=== PATIENT | female | born 1945 | race Hispanic/Latino ===

== ENCOUNTER 2020-04-07 09:44 | Emergency (ER) | payer MEDICARE, MEDICAID ==
[2020-04-07] MEDS ORDERED: DEXAMETHASONE INJ 10 MG/ML VIAL IV ONE (09:56)
[2020-04-07] MEDS ORDERED: REMDESIVIR 200 MG in SODIUM CHLORIDE 0.9% 250ML 250 ML IVPB ONE (09:57)
[2020-04-07 10:03] VITALS: BP 136/87; TEMP 96.2; O2SAT 99
[2020-04-07] MEDS ORDERED: MIDAZOLAM INJ 5 MG/5 ML VIAL ONE (10:33)
[2020-04-07] MEDS ORDERED: MORPHINE SULFATE INJ 10 MG/ML VIAL ONE (10:43)
--- NOTE | 2020-04-07 10:50 | RAD ---
EXAM DESCRIPTION: Chest,1 View CLINICAL HISTORY: 74 years Female, COVID, POST INTUBATION COMPARISON: None. Findings: One view(s)/radiograph(s) Overlying artifact limits evaluation. Right-sided PICC tip overlying the SVC. Cardiac silhouette and pulmonary vasculature are obscured. No pneumothorax. No pleural effusion. Diffuse bilateral airspace disease. Endotracheal tube tip at the dennys. IMPRESSION: Endotracheal tube tip at the dennys. Recommend 3 cm retraction. Diffuse bilateral airspace disease. Electronically signed by: Abbe Kate MD 04/07/2020 10:48 AM [facility]
--- NOTE | 2020-04-07 10:54 | RAD ---
EXAM DESCRIPTION: Chest,1 View CLINICAL HISTORY: covid, sob Findings: Portable supine view of the thorax was acquired April 07, 2020 at 1033 hours. The patient is intubated with endotracheal tube tip position in the left mainstem bronchus. Repositioning is recommended by withdrawal approximately 4 cm. Bilateral groundglass airspace opacities are present consistent with reported history of COVID. A right subclavian central venous catheter is seen. No pneumothorax is demonstrated. The heart size is within normal limits. No acute bony pathology. IMPRESSION: Endotracheal tube tip positioned in the left mainstem bronchus. This study was submitted at the same time 1033 hours a second image was submitted showing the endotracheal tube and improved position. Clinical correlation needed. Electronically signed by: Lior Rivera MD 04/07/2020 10:52 AM [facility]
--- NOTE | 2020-04-07 11:38 | ED.PDOC ---
History of Present Illness - General Chief Complaint: Respiratory Problem Stated Complaint: low sats at [facility] unit Time Seen by Provider: 04/07/20 09:45 Source: patient Exam Limitations: no limitations - History of Present Illness Initial Comments: The patient is a 74-year-old female sent from the [place] [facility] secondary to low oxygen saturations. The patient does appear pale and diaphoretic. Blood pressures are adequate though it is difficult to obtain accurate pulse oximetry readings on the patient. This is not a new problem however. The patient was placed on higher flow oxygen here and within about 30 minutes of arrival the patient coded. Chest compressions were started and the patient was bagged. Multiple rounds of epi and sodium bicarbonate were given. Glucose was greater than 300 but no other labs were back during the code. EKG had not yet been done by the time the patient had coded. On at least 2 occasions we did get a pulse back however it would quickly go away. It was at this point that we talked with her family, her sister who reported that she would not want to be on a ventilator and would not want to have CPR done. At that point we switched to comfort care. The patient did have a very faint pulse but was unresponsive and pulse ceased within a few minutes of chest compressions being stopped. This was in spite of epinephrine being on board. Lung watkins showed rales and wheezes throughout on initial exam and infiltrates were seen on chest x-ray for ET tube placement. The patient did initially have a PICC line in the right upper extremity which was used during the code. She had been receiving IV antibiotics for a sacral decubitus ulcer. We were actually in the middle of getting an ABG when the patient coded. See nursing notes for details of the code. The patient was known coronavirus positive prior to arrival. Upon arrival patient was initially conversive but a little bit delirious. She was cooperative. Timing/Duration: 4-6 hours Severity: severe Improving Factors: nothing Worsening Factors: movement Associated Symptoms: cough, malaise, shortness of breath, weakness Allergies/Adverse Reactions: Allergies NO KNOWN ALLERGY Allergy (Verified 04/07/20 09:58) Review of Systems - Review of Systems Constitutional: States: diaphoresis, malaise, weakness EENTM: States: nose congestion Respiratory: States: cough, short of breath, wheezing Cardiology: States: no symptoms reported Gastrointestinal/Abdominal: States: no symptoms reported Genitourinary: States: no symptoms reported Musculoskeletal: States: see HPI Skin: States: see HPI Neurological: States: see HPI Endocrine: States: no symptoms reported All other Systems: No Change from Baseline Past Medical History (General) - Patient Medical History Hx Stroke: No Hx Dementia: No Hx Asthma: No Hx of COPD: No Hx Cardiac Disorders: Yes Hx Congestive Heart Failure: No Hx Diabetes: Yes Hx Gastroesophageal Reflux: No Hx Renal Disease: No Hx Cancer: No Hx Hepatitis C: No MRSA Source:: Wound - Vaccination History Hx Tetanus, Diphtheria Vaccination: No Hx Influenza Vaccination: No Hx Pneumococcal Vaccination: No Immunizations Up to Date: No - Social History Hx Tobacco Use: No Hx Chewing Tobacco Use: No Hx Alcohol Use: No Hx Substance Use: No Hx Substance Use Treatment: No Hx Depression: No Feels Threatened In Home Enviroment: No Feels Threatened In a Relationship: No Hx Physical Abuse: No Hx Emotional Abuse: No Hx Suspected Abuse: No - Activities of Daily Living Halfway/Assisted Living (if applicable):: Jose Wu - Female History Patient is a Female of Child Bearing Age (10 -59 yrs old): No Patient : No Physical Exam - Physical Exam General Appearance: Alert, Anxious, Frail, Ill Appearing Eye Exam: bilateral normal Ears, Nose, Throat: hearing grossly normal, normal pharynx, nasal congestion Neck: non-tender Respiratory: decreased breath sounds, accessory muscle use, rales, wheezing Cardiovascular/Chest: normal peripheral pulses, no edema Peripheral Pulses: radial,right: 2+, radial,left: 2+, femoral,right: 2+, femoral,left: 2+ Gastrointestinal/Abdominal: non tender, soft Rectal Exam: deferred Back Exam: other - Scoliosis. Wound VAC is in place over posterior ulcer Extremity: non-tender, other - Trace edema to the feet. Poor capillary refill to lower extremities which may be chronic Neurologic: electrical engineering technologist II-XII nml as tested, alert, other - The patient is cooperative Skin Exam: pallor Comments: Vital Signs - 24 hr 04/07/20 04/07/20 09:59 10:45 Temperature 96.2 F L Pulse Rate 122 H Pulse Rate [ 114 H Left Radial] Respiratory 24 20 Rate Blood Pressure 136/87 [Left Arm] O2 Sat by Pulse 99 Oximetry Progress - Progress Progress: 04/07/20 11:41 The patient is a 74-year-old female presented emergency room in respiratory distress secondary to coronavirus pneumonia which essentially led to her decompensation. Looking at the lab work, the patient likely became significantly hypoxic which led to a CHF exacerbation and significant lactic acidosis, ultimately leading to arrhythmia, hypotension and cardiac arrest. There is a elevation of the troponin indicating likely a global cardiac ischemia due to low O2 saturations. CPR was performed on the patient. See history of present illness. Ultimately it was nonproductive and essentially futile. After discussion with the patient's sister, comfort care was elected. The patient was extubated and placed on oxygen nasal cannula and given Versed and morphine for comfort care. The patient within minutes of chest compressions being stopped. Ultrasound was used to confirm lack of cardiac motion. Patient was discharged to at 10:55 AM. rosita hooker [id number] 04/07/20 11:44 Critical care time spent on this patient is 40 minutes. - Results/Orders Results/Orders: Telemetry initially shows sinus tachycardia. Chest x-ray for placement of the ET tube was repeated after the ET tube was moved back. Bilateral infiltrates are noted. Laboratory Tests 04/07/20 04/07/20 04/07/20 09:58 10:00 10:00 WBC 15.3 H RBC 3.26 L Hgb 10.7 L Hct 33.5 L MCV 102.8 H MCH 32.7 H MCHC 31.8 L RDW 14.8 H Plt Count 300 MPV 10.2 Absolute Neuts (auto) 12.60 H Absolute Lymphs (auto) 1.90 Absolute Monos (auto) 0.50 Absolute Eos (auto) 0.00 Absolute Basos (auto) 0.20 H Neutrophils % 82.6 H Lymphocytes % 12.8 L Monocytes % 3.6 Eosinophils % 0.0 L Basophils % 1.0 PT INR PTT (SP) Fibrinogen Sodium 132 L Potassium 4.4 Chloride 97 L Carbon Dioxide 11 L* Anion Gap 28.4 H BUN 10 Creatinine 0.53 L BUN/Creatinine Ratio 18.9 POC Glucose 314 H Random Glucose 367 H Serum Osmolality 278.5 Lactic Acid Calcium 8.3 L Magnesium 2.0 Ferritin Total Bilirubin 0.7 AST 83 H ALT 22 Alkaline Phosphatase 54 LD Total 544 H Creatine Kinase 53 CK-MB (CK-2) 4.1 Troponin I 0.44 H* C-Reactive Protein 15.1 H* Serum Total Protein 5.6 L Albumin 2.7 L Globulin 2.9 Albumin/Globulin Ratio 0.9 L TSH 3.41 04/07/20 04/07/20 04/07/20 10:00 10:00 10:00 WBC RBC Hgb Hct MCV MCH MCHC RDW Plt Count MPV Absolute Neuts (auto) Absolute Lymphs (auto) Absolute Monos (auto) Absolute Eos (auto) Absolute Basos (auto) Neutrophils % Lymphocytes % Monocytes % Eosinophils % Basophils % PT 12.8 H INR 1.29 H PTT (SP) 38.8 H Fibrinogen 710 H* Sodium Potassium Chloride Carbon Dioxide Anion Gap BUN Creatinine BUN/Creatinine Ratio POC Glucose Random Glucose Serum Osmolality Lactic Acid 13.4 H* Calcium Magnesium Ferritin 1140.9 H Total Bilirubin AST ALT Alkaline Phosphatase LD Total Creatine Kinase CK-MB (CK-2) Troponin I C-Reactive Protein Serum Total Protein Albumin Globulin Albumin/Globulin Ratio TSH Departure - Departure Clinical Impression: Pneumonia due to 2019-nCoV, Cardiac arrest, Lactic acidosis Disposition: Departure Forms: ED Discharge - Pt. Copy, Patient Portal Self Enrollment Referrals: REGINA JASSO [Primary Care Provider] - 1-2 Weeks
== END 2020-04-07 15:15 | disposition expired ==
LOC: ER 09:44
DX: U07.1 COVID-19 (principal); J12.89 Other viral pneumonia; I46.9 Cardiac arrest, cause unspecified; E87.2 Acidosis; R09.02 Hypoxemia; R00.0 Tachycardia, unspecified; E11.9 Type 2 diabetes mellitus without complications; F05 Delirium due to known physiological condition; I51.9 Heart disease, unspecified
CPT/HCPCS: 31500; 36415; 36416; 71045; 80053; 82550; 82553; 82728; 82948; 83605; 83615; 83735; 83880; 84443; 84484; 85025; 85379; 85384; 85610; 85730; 86140; 92950; 93005; 94770; J2250; J2270